=== PATIENT | female | born 1975 | race Caucasian/White ===

== ENCOUNTER 2017-05-09 13:04 | Emergency (ER) | payer MEDICAID | END 2017-05-10 17:44 | disposition home or self-care (01) | LOC: E/R 05-10 17:44 | DX: R05 Cough (principal) | CPT/HCPCS: 99284; Z7502 ==

== ENCOUNTER 2017-06-11 10:48 | Emergency (ER) | payer MEDICAID | END 2017-06-11 11:50 | disposition home or self-care (01) | LOC: E/R 10:48 | DX: J31.0 Chronic rhinitis (principal) | CPT/HCPCS: 99284; Z7502 ==

== ENCOUNTER 2017-07-07 11:50 | Emergency (ER) | payer MEDICAID | END 2017-07-07 12:15 | disposition home or self-care (01) | LOC: E/R 11:50 | DX: J06.9 Acute upper respiratory infection, unspecified (principal) | CPT/HCPCS: 99283 ==

== ENCOUNTER 2017-07-28 11:23 | Emergency (ER) | payer MEDICAID ==
[2017-07-28] MEDS: KETOROLAC 60 MG INJ IM (12:30)
[2017-07-28 13:12] LABS: ADD UMIC NO; UR ASCORBIC ACID NEGATIVE (NEGATIVE); UR BILIRUBIN (Dip) NEGATIVE (NEGATIVE); UR BLOOD (Dip) NEGATIVE (NEGATIVE); UR CLARITY CLEAR (CLEAR); UR COLOR STRAW (YELLOW); UR GLUCOSE (Dip) NEGATIVE (NEGATIVE); UR KETONES (Dip) NEGATIVE (NEGATIVE); UR LEUKOCYTE ESTERASE (Dip) NEGATIVE Leu/ul (NEGATIVE); UR NITRITE (Dip) NEGATIVE (NEGATIVE); UR SPECIFIC GRAVITY (Dip) 1.008 (1.003-1.030); UR TOTAL PROTEIN (Dip) NEGATIVE (NEGATIVE); UR UROBILINOGEN (Dip) NEGATIVE (NEGATIVE)
== END 2017-07-28 13:48 | disposition home or self-care (01) ==
LOC: FTE 11:23
DX: M54.6 Pain in thoracic spine (principal)
CPT/HCPCS: 71045; 73030-RT; 81003; 84703; 96372; 99284-25

== ENCOUNTER 2017-10-22 11:49 | Emergency (ER) | payer MEDICAID ==
[2017-10-22] MEDS: LIDOCAINE/MYLANTA 40 ML BTL PO (12:18)
[2017-10-22] MEDS: ONDANSETRON (ODT) 4 MG TAB ODT (12:18)
== END 2017-10-22 13:15 | disposition home or self-care (01) ==
LOC: FTE 11:49
DX: K21.9 Gastro-esophageal reflux disease without esophagitis (principal)
CPT/HCPCS: 99283; Z7502

== ENCOUNTER 2018-02-06 13:11 | Emergency (ER) | payer MEDICAID ==
[2018-02-06 15:45] LABS: URINE PH (Dip) POC 5.5 (5.0-8.5)
[2018-02-06 15:45] LABS: URINE BLOOD (Dip) POC Negative (NEGATIVE); URINE GLUCOSE (Dip) POC Negative (NEGATIVE); URINE KETONES (Dip) POC Negative (NEGATIVE); URINE LEUKOCYTE EST (Dip) POC Negative (NEGATIVE); URINE NITRITE (Dip) POC Negative (NEGATIVE); URINE TOTAL PROTEIN POC Negative (NEGATIVE)
[2018-02-06] MEDS: KETOROLAC 30 MG INJ IM (15:45)
== END 2018-02-06 16:18 | disposition home or self-care (01) ==
LOC: FTE 13:11
DX: B34.9 Viral infection, unspecified (principal); T50.905A Adverse effect of unspecified drugs, medicaments and biological substances, initial encounter
CPT/HCPCS: 81003; 81025; 96372; 99284-25

== ENCOUNTER 2018-02-25 13:16 | Emergency (ER) | payer MEDICAID ==
[2018-02-25] MEDS: METHYLPREDNISOLONE 125 MG INJ IM (14:06)
== END 2018-02-25 15:35 | disposition home or self-care (01) ==
LOC: FTE 13:16
DX: L29.9 Pruritus, unspecified (principal)
CPT/HCPCS: 96372; 99284-25

== ENCOUNTER 2018-09-09 10:45 | Emergency (ER) | payer MEDICAID ==
[2018-09-09] MEDS: KETOROLAC 60 MG INJ IM (11:48)
== END 2018-09-09 11:53 | disposition home or self-care (01) ==
LOC: FTE 10:45
DX: R05 Cough (principal)
CPT/HCPCS: 81025; 96372; 99284-25

== ENCOUNTER 2018-10-20 12:27 | Emergency (ER) | payer MEDICAID ==
[2018-10-20 13:55] LABS: ADD MAN DIFF? NO
[2018-10-20 14:00] LABS: WHITE BLOOD COUNT 7.2 10^3/ul (4.8-10.8)
[2018-10-20 14:00] LABS: BASOPHILS % 0.4 % (0.0-2.0); EOSINOPHILS # 0.1 10^3/ul (0.0-0.5); EOSINOPHILS % 1.5 % (0.0-7.0); HEMATOCRIT 37.9 % (37.0-47.0); HEMOGLOBIN 12.1 g/dl (12.0-16.0); LYMPHOCYTES # 2.4 10^3/ul (0.8-2.9); LYMPHOCYTES % 33.3 % (15.0-51.0); MEAN CORPUSCULAR HEMOGLOBIN 28.2 pg (29.0-33.0); MEAN CORPUSCULAR HGB CONC 31.9 g/dl (32.0-37.0); MEAN CORPUSCULAR VOLUME 88.3 fl (82.0-101.0); MEAN PLATELET VOLUME 10.7 fl (7.4-10.4); MONOCYTE # 0.5 10^3/ul (0.3-0.9); MONOCYTES % 6.7 % (0.0-11.0); NEUTROPHIL # 4.1 10^3/ul (1.6-7.5); NEUTROPHILS % 57.7 % (39.0-77.0); PLATELET COUNT 340 10^3/UL (140-415); RED BLOOD COUNT 4.29 10^6/ul (4.20-5.40); RED CELL DISTRIBUTION WIDTH 13.3 % (11.5-14.5)
[2018-10-20] MEDS: FAMOTIDINE 20 MG TAB PO (14:07)
[2018-10-20] MEDS: LIDOCAINE/MYLANTA 40 ML BTL PO (14:08)
[2018-10-20 14:23] LABS: ANION GAP 8 (5-13); BLOOD UREA NITROGEN 16 mg/dl (7-20); CALCIUM 9.3 mg/dl (8.4-10.2); CARBON DIOXIDE 30 mmol/L (21-31); CHLORIDE 102 mmol/L (97-110); Estimated GFR > 60 mL/min (>60); GLUCOSE 111 mg/dl (70-220); POTASSIUM 4.2 mmol/L (3.5-5.1); SODIUM 140 mmol/L (135-144)
[2018-10-20 14:36] LABS: TROPONIN-I < 0.012 ng/ml (0.000-0.120)
== END 2018-10-20 15:38 | disposition home or self-care (01) ==
LOC: E/R 12:27
DX: K21.9 Gastro-esophageal reflux disease without esophagitis (principal); R20.2 Paresthesia of skin
CPT/HCPCS: 36415; 71045; 80048; 84484; 85025; 93005; 99285-25